=== PATIENT | female | born 2000 | race Caucasian/White ===

== ENCOUNTER 2023-05-09 04:11 | Emergency (ER) | payer OTHER ==
[~2023-05-09] VITALS: Ht 167.6 cm; Wt 70.3 kg
[2023-05-09 04:56] VITALS: BP 110/70; TEMP 98.3; O2SAT 98
== END 2023-05-09 04:56 | disposition home or self-care (01) ==
LOC: ER 04:11
DX: S69.82XA Other specified injuries of left wrist, hand and finger(s), initial encounter (principal); W22.8XXA Striking against or struck by other objects, initial encounter; Y93.89 Activity, other specified; Y92.89 Other specified places as the place of occurrence of the external cause; Y99.8 Other external cause status